=== PATIENT | male | born 1955 | race African-American/Black ===

== ENCOUNTER → 2020-12-09 | Outpatient (CLI) | payer MEDICAID, MEDICARE ==
--- NOTE | 2020-12-09 12:38 | KCIC ---
EXAMINATION: Magnetic resonance imaging (MRI) of the lumbar spine without contrast 12/09/2020 9:30 AM HISTORY: Low back pain. Multiple back injuries. Alternating bilateral lower extremity pain. TECHNIQUE: Multiplanar multi-weighted MRI of the lumbar spine was performed without intravenous contr ast using the standard lumbar spine protocol. Contrast information: None administered. COMPARISON: None available. FINDINGS: 2 mm retrolisthesis of L1 on L2. There is 3 mm anterolisthesis of L4 on L5. Vertebral body heights ar e maintained. Marrow signal intensity is normal in all sequences. 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 Conus medullaris terminates at T12-L1. Distal spinal cord signal intensity is normal in all sequences. Abdominal aorta is normal in caliber. No suspicious ret roperitoneal abnormality. Sclerotic density involving the left iliac bone measures 1.4 cm and presume d benign given absence of underlying malignancy. T11-T12: Mild disc bulge asymmetric to the left. Mild facet arthropathy. Mild left neuroforaminal collins nosis. Mild spinal canal stenosis without deformity of the conus medullaris. T12-L1: Disc is normal in configuration. Mild facet arthropathy. No neuroforaminal or spinal canal st enosis. L1-L2: There is circumferential disc bulge. There is moderate facet arthropathy. There is moderate ne uroforaminal stenosis. There is mild spinal canal stenosis. There is narrowing of the right subarticu lar zone. L2-L3: Mild circumferential disc bulge. There is moderate facet arthropathy with ligamentum flavum in folding. There is moderate left and mild to moderate right neuroforaminal stenosis. There is moderate spinal canal stenosis. L3-L4: There is a circumferential disc bulge. There is severe facet arthropathy. There is moderate ne uroforaminal stenosis. There is moderate spinal canal stenosis. L4-L5: There is a disc bulge asymmetric to the right with right far lateral disc protrusion. There is severe facet arthropathy ligamentum flavum infolding. There is moderate to severe bilateral neurofor aminal stenosis. There is severe spinal canal stenosis. L5-S1: Disc bulge with central disc protrusion. There is moderate facet arthropathy. There is mild ne uroforaminal stenosis. There is no spinal canal stenosis. IMPRESSION: Moderate degenerative changes of the lumbar spine as described in detail above. Electronically signed by: Julia Gutierrez MD (12/09/2020 12:36 PM) [facility]
--- NOTE | 2020-12-09 13:01 | KCIC ---
STUDY: MRI of the right shoulder without contrast INDICATION: Right shoulder pain and limited range of motion. COMPARISON: None. TECHNIQUE: Multiplanar MR imaging of the right shoulder performed without the use of intravenous or i ntra-articular contrast. FINDINGS: AC joint: Moderate AC joint arthrosis in the inferior joint capsule is indistinct which may be degene rative or related to previous trauma. Mild subacromial subdeltoid bursitis. Rotator cuff: Ill-defined T2 signal elevation mainly at the footprint of the mid to posterior suprasp inatus and anterior infraspinatus. The appearance is favored related to tendinosis with some superimp osed low-grade interstitial and articular sided tearing/fraying but there is no well delineated high- grade or full-thickness tear defect. The teres minor and subscapularis are intact. Muscular bulk is m aintained. Labrum: Labral degeneration/degenerative tearing best seen along portions of the posterior labrum. No displaced labral tissue or paralabral cyst. Long head biceps tendon: Remains intact and normally located. Cartilage: Scattered chondral thinning without a well delineated full-thickness defect. Bones: Mild degenerative edema along a portion of the greater tuberosity. Miscellaneous: Normal volume shoulder joint fluid. Intact inferior glenohumeral ligament complex. Unr emarkable axillary soft tissues. Impression: 1. Heterogeneous T2 signal elevation mainly involving the mid to posterior supraspinatus and anterio r infraspinatus at the footprint favored a combination of tendinosis and low-grade articular sided an d interstitial tearing. Cross-section involvement estimated at less than 25%. No well delineated high -grade or full-thickness rotator cuff tear. Muscular bulk is maintained. 2. Labral degeneration/degenerative tearing at several locations best seen posteriorly. No displaced labral fragment or paralabral cyst. The long head biceps is intact. 3. Moderate AC joint arthrosis. Indistinct inferior joint capsule could be degenerative or related t o previous trauma. 4. Very mild subacromial subdeltoid bursitis. Electronically signed by: RIMMA JACKMAN MD (12/09/2020 12:59 PM) [id number]
--- NOTE | 2020-12-09 13:21 | KCIC ---
STUDY: MRI of the right knee without contrast INDICATION: Right knee pain. COMPARISON: None. TECHNIQUE: Multiplanar MR imaging of the right knee performed without the use of intravenous or intra -articular contrast. FINDINGS: Menisci: Complex tearing with the degree of maceration involving the medial meniscus throughout the b rosa segment and posterior horn extension of torn meniscus downward into the meniscotibial recess such as seen on image 12 series 8. The lateral meniscus is intact. Cruciate ligaments: Intact. Collateral ligaments: Intact. Tendons: Intact. Cartilage: Patellofemoral: Multiple areas of partial thickness patellar chondrosis such is fissuring at the medi an ridge on image 11 series 3. Mostly partial-thickness chondrosis along the trochlear groove and med ial trochlea with a small area of higher grade chondral loss at the mid medial trochlea on image 15 s eries 6. Lateral compartment: Partial thickness chondrosis best seen at the posterior half of the lateral to t he plateau along its inner margin. High-grade chondral defect of the proximal nonweightbearing latera l femoral condyle measuring approximately 10 mm AP by 4 mm transverse, images 20 series 6 and 9 serie s 8. Localized chondrosis at the far posterior nonweightbearing lateral femoral condyle. Medial compartment: High-grade/full-thickness chondrosis along much of the weightbearing aspect of th e medial compartment, mainly peripherally. Partial thickness chondrosis of the posterior nonweightbea ring medial femoral condyle. Bones: Degenerative subchondral edema/cystic change greatest at the medial compartment. Scattered ost eophytes largest along the medial joint line. Normal TT-TG distance. Medial compartment joint space n arrowing. Miscellaneous: Small amount of knee joint fluid. Ganglion cyst formation dorsal to the popliteus tend on. Mildly edematous suprapatellar fat pad. Mild prepatellar edema without bursal fluid. IMPRESSION: 1. Complex tearing with a degree of maceration throughout the medial meniscal body and posterior hor n. Extension of torn meniscus downward into the meniscotibial recess. The lateral meniscus is intact as are the cruciate and collateral ligaments. 2. Tricompartmental chondrosis most pronounced at the medial femorotibial compartment with prominent areas of high-grade and full-thickness loss along the weightbearing aspect. Electronically signed by: RIMMA JACKMAN MD (12/09/2020 1:19 PM) [id number]
== END ==
LOC: KCIC MRI 09:24
PROVIDERS: ATTEND Family Medicine
DX: S83.231A Complex tear of medial meniscus, current injury, right knee, initial encounter (principal); S43.431A Superior glenoid labrum lesion of right shoulder, initial encounter; M67.461 Ganglion, right knee; M79.4 Hypertrophy of (infrapatellar) fat pad; M19.011 Primary osteoarthritis, right shoulder; M47.25 Other spondylosis with radiculopathy, thoracolumbar region; M51.17 Intervertebral disc disorders with radiculopathy, lumbosacral region; M43.16 Spondylolisthesis, lumbar region; M48.05 Spinal stenosis, thoracolumbar region; M75.51 Bursitis of right shoulder; R60.9 Edema, unspecified; X58.XXXA Exposure to other specified factors, initial encounter; Y93.89 Activity, other specified; Y92.89 Other specified places as the place of occurrence of the external cause; Y99.8 Other external cause status
CPT/HCPCS: 72148; 73221; 73721

== ENCOUNTER → 2021-01-01 | Outpatient (CLI) | payer MEDICARE ==
--- NOTE | 2021-01-03 09:05 | KCIC ---
Five view lumbar spine radiographs to include flexion and extension views 01/01/2021 CLINICAL HISTORY: Low back pain. AP, two neutral lateral, bilateral oblique and flexion and extension lateral digital radiographs of t he lumbar spine were obtained. Comparison is made to a MRI of the lumbar spine dated 12/09/2020. Minimal S-shaped curvature of the thoracolumbar spine is seen. Hypoplastic ribs are seen at T12. Mild anterolisthesis of L4 in relation L5 is seen. Degenerative changes are seen involving lower thoracic and throughout the lumbar disc spaces consisting of varying degrees of endplate sclerosis, disc spac e narrowing and minimal to mild anterior and posterior vertebral body osteophyte formation. Degenerat jaspal changes are seen involving the facet joints throughout the lumbar spine. No fracture or subluxati on lumbar vertebrae seen. The alignment of the lumbar vertebrae is maintained in flexion and extensio n. Calculations are seen throughout the pelvis consistent with phleboliths. IMPRESSION: Degenerative changes are seen involving the lumbar spine as discussed above. No acute oss eous abnormality is seen. Electronically signed by: Judd Urrutia MD (01/03/2021 9:03 AM) [id number]
== END ==
LOC: KCIC 13:07
PROVIDERS: ATTEND Neurological Surgery
DX: M47.816 Spondylosis without myelopathy or radiculopathy, lumbar region (principal); M48.061 Spinal stenosis, lumbar region without neurogenic claudication; M43.16 Spondylolisthesis, lumbar region; M43.8X5 Other specified deforming dorsopathies, thoracolumbar region; M25.78 Osteophyte, vertebrae
CPT/HCPCS: 72114

== ENCOUNTER → 2021-01-26 | Outpatient (CLI) | payer MEDICAID, MEDICARE ==
[~2021-01-26] MED LIST: GOLDEN SEAL PO; LATA2.5D2 OU; NAPR220C4 PO; OMEG-152 PO; TRAM50TA PO; [UNRECOGNIZED DRUG - OTHER] PO; vitamin c; vitamin e PO
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
== END ==
LOC: PNCL 09:16
PROVIDERS: ATTEND Anesthesiology
DX: M54.5 Low back pain (principal); K21.9 Gastro-esophageal reflux disease without esophagitis; M19.90 Unspecified osteoarthritis, unspecified site; Z87.01 Personal history of pneumonia (recurrent); Z87.891 Personal history of nicotine dependence; Z79.899 Other long term (current) drug therapy; Z98.890 Other specified postprocedural states
CPT/HCPCS: 99214; G0463

== ENCOUNTER → 2021-03-15 | Outpatient (CLI) | payer MEDICARE ==
--- NOTE | 2021-03-15 11:28 | PDOC ---
Progress Note - Pain Clinic Date of Service: DOS: DATE: 03/15/21 TIME: 11:24 Diagnosis: Dx: Lumbar lumbosacral spondylosis Lumbar degenerative disc disease with lumbar spinal stenosis History or Present Illness: HPI: 65-year-old male presents with pain low back and right greater than left lumbar spine and gluteus for years worse over the past year or so patient reports the pain is across the low back described as aching and radiating can be constant on and off in intensity worse with bending extension and flexion and right left lateral rotation again worse on the right side patient reports is an 8 on scale 10 is worse over the past week 3 on average 3 days least is a 3 today. Patient scribes it is aching dull shooting and tight across the low back but not radiating to the lower extremities patient reports is worse with walking standing changing position especially getting up from seated position or standing for more than 15 to 20 minutes patient reports it wakes him from sleep about every 4-6 hours but she lays on his right side. Patient reports no loss of motor function but significant fatigability with standing, and walking. Patient reports no bowel or bladder incontinence. Physical Exam: VS: Blood pressure is 137 pulse 70 respirations 18 temperature is 98.2 F weight is 239 pounds PE: PHYSICAL EXAMINATION: GENERAL: The patient is awake, alert, oriented, appropriate, very pleasant in demeanor HEENT: Shows normocephalic, atraumatic. Extraocular movements are intact and symmetrical. Oral cavity: Mucous membranes moist and pink. Dentition is intact. NECK: Shows anterior throat supple without palpable lymphadenopathy noted. Swallow reflex symmetrical. CHEST: Shows normal on inspection. Breath sounds are clear bilaterally, no rales rhonchi or wheezes auscultated. HEART: Shows S1, S2 clear. No murmurs auscultated. ABDOMEN: Soft, nontender, nondistended, obese. No palpable organomegaly is noted. No rebound or guarding demonstrated. BACK: Shows spine grossly in the midline. Normal-appearing cervical lordotic curvature. There is slightly increased thoracic kyphosis, some minor flattening of the lumbar lordotic curvature. Lumbar paraspinous muscles show symmetrical on inspection, on palpation shows some moderate tenderness diffusely throughout the upper, middle and lower distribution of the paraspinous muscles without specific trigger points, without radiation of pain. The patient has good rotational motion of the lumbar spine, both laterally as well as extension and flexion with significant tenderness with right greater than left rotation past 10 degrees of the lumbar spine as well as extension and axial loading to the low back with very significant pain again right greater than left better with forward flexion 45 degrees. No tenderness over the spinous processes, sacrum or sacroiliac regions. EXTREMITIES: Lower extremities show deep tendon reflexes 2+ in the patellar and tendo calcaneus tendons. Motor exam is 5 on a scale of 5 with right dorsiflexion, extension, quadriceps and hamstring flexion and 5/5 on the left. Peripheral pulses are 1 posterior tibial. No peripheral edema is noted bila terally. Lower extremities are warm and dry to touch, equal in color and appearance. SKIN: Shows warm and dry, good turgor. No edema. No sores, rashes or bruising throughout. Procedure: Procedure: Options discussed with patient. Patient chart reviewed his current medication regimen updated current review of systems updated today as well. We will preauthorize patient for bilateral L4-5 and L5-S1 facet medial branch blocks with fluoroscopic guidance. Patient is significant facet agenic pain again worse on the right than the left with extension of the lumbar spine most exacerbating as well as right and left lateral rotation. Once approved, patient will return for bilateral L4-5 and L5-S1 facet medial branch blocks. Medication Injected: Med Injected: None Condition at Discharge: Condition at Discharge: Condition at discharge is stable. DI RUEDA MD Mar 15, 2021 11:28
== END | disposition home or self-care (01) ==
LOC: PNCL 10:11
PROVIDERS: ATTEND Anesthesiology
DX: M51.36 Other intervertebral disc degeneration, lumbar region (principal); M48.061 Spinal stenosis, lumbar region without neurogenic claudication; M47.817 Spondylosis without myelopathy or radiculopathy, lumbosacral region; Z79.899 Other long term (current) drug therapy; Z88.2 Allergy status to sulfonamides
CPT/HCPCS: 99212; G0463

== ENCOUNTER → 2021-03-29 | Outpatient (CLI) | payer MEDICARE ==
[~2021-03-29] MED LIST changes: +BUPIVACAINE MPF 0.25% 10 ML VIAL. ONE; +IOHEXOL 180 MG/ML 10 ML VIAL. ONE; +methylPREDNISolone ACETATE 40 MG/ML VIAL. ONE; +methylPREDNISolone ACETATE 80 MG/ML VIAL. ONE
--- NOTE | 2021-03-29 10:47 | PDOC ---
Progress Note - Pain Clinic Date of Service: DOS: DATE: 03/29/21 TIME: 10:44 Diagnosis: Dx: Lumbar and lumbosacral spondylosis Lumbar degenerative disc disease Lumbar spinal stenosis History or Present Illness: HPI: 65-year-old male returns with complaints of low back pain bilaterally right slightly worse than the left but present bilaterally not radiating to the lower extremities at this time but is across the low back bilaterally worse with walking standing changing positions getting up from a seated position and as wel l is been awakening from sleep at night patient reports it slightly worse on the right than the left with extension at the lumbar spine as well as walking. Patient reports is an 8 on scale 10 is worse over the past week 5 on average 3 its least is a 5 today. Patient which is tight and constant on and off in intensity but always present. Patient reports no loss of motor function no bowel or bladder incontinence. Patient has been using his inversion table about 3 times a day which does help decrease the pain by about 30%. Patient reports no motor or sensory deficits no bowel or bladder incontinence. Physical Exam: VS: Blood pressure is 132/75 pulse 72 respirations 18 temperature 98.3 F height is 6 foot 2 inches weight is 237 pounds PE: PHYSICAL EXAMINATION: GENERAL: The patient is awake, alert, oriented, appropriate, very pleasant in demeanor HEENT: Shows normocephalic, atraumatic. Extraocular movements are intact and symmetrical. Oral cavity: Mucous membranes moist and pink. Dentition is intact. NECK: Shows anterior throat supple without palpable lymphadenopathy noted. Swallow reflex symmetrical. CHEST: Shows normal on inspection. Breath sounds are clear bilaterally, no rales or rhonchi. HEART: Shows S1, S2 clear. No murmurs auscultated. ABDOMEN: Soft, nontender, nondistended, obese. No palpable organomegaly is noted. BACK: Shows spine grossly in the midline. Normal-appearing cervical lordotic curvature. There is slightly increased thoracic kyphosis, some minor flattening of the lumbar lordotic curvature. Lumbar paraspinous muscles show symmetrical on inspection, on palpation shows some moderate tenderness diffusely throughout the upper, middle and lower distribution of the paraspinous muscles without specific trigger points, without radiation of pain. The patient has good rotational motion of the lumbar spine, both laterally as well as extension and flexion with moderate tenderness with extension and axial loading lumbar spine forward flexion at 45 degrees with 1 without significant difficulty as is right and left lateral rotation but moderate tenderness greater than 10 degrees right and left and equal. EXTREMITIES: Lower extremities show deep tendon reflexes 2+ in the patellar and tendo calcaneus tendons. Motor exam is 5 on a scale of 5 with right dorsiflexion, extension, quadriceps and hamstring flexion and 5/5 on the left. Peripheral pulses are 1+ posterior tibial. No peripheral edema is noted bilaterally. Lower extremities are warm and dry to touch, equal in color and appearance. SKIN: Shows warm and dry, good turgor. No edema. No sores, rashes or bruising throughout. Procedure: Procedure: Options were discussed with the patient. Patient's old chart was viewed as his current medication regimen updated current view of systems updated today as well. We will proceed with bilateral L4-5 and L5-S1 facet medial branch blocks today with fluoroscopic guidance. Risks were discussed including but not limited to: Bleeding, infection, possibility of epidural hematoma and subsequent neurological compromise, dural puncture, headaches, spinal cord and/or nerve damage, side effects of steroid medication, and poor results regarding pain control. Patient understands and wished to proceed. Patient will return to the clinic in approximate 2 weeks for follow-up, was counseled return appointment, activity level, and side effect to be aware of. Medication Injected: Med Injected: Under sterile prep and drape using C-arm fluoroscopic guidance AP and lateral and oblique views, bilateral L4-5 and L5-S1 facet joint MB's injections were performed, using quinke needles with stylette's x4,, medications injected: 120 mg Depo-Medrol +4 cc 0.25% bupivacaine +2 cc contrast. Condition at discharge stable patient tolerated the procedure well and no complications. Condition at Discharge: Condition at Discharge: Condition at discharge stable, patient tolerated procedure well and had no complications. DI RUEDA MD Mar 29, 2021 10:47
--- NOTE | 2021-03-29 10:48 | PDOC4 ---
Procedure Note: ICD 10 Code: ICD 10 Code: M4 7.816 M4 7.817 Procedure Note: Patient was consented for bilateral L4-5 and L5-S1 facet medial branch blocks with fluoroscopic guidance. Risks were discussed including but not limited to: Bleeding, infection, possibility of epidural hematoma and subsequent neurological compromise, dural puncture, headaches, spinal cord and/or nerve damage, side effects of steroid medication, and poor results regarding pain control. Patient understands and wished to proceed. Under sterile prep and drape using C-arm fluoroscopic guidance AP and lateral and oblique views, bilateral L4-5 and L5-S1 facet joint MB's injections were performed, using quinke needles with stylette's x4,, medications injected: 120 mg Depo-Medrol +4 cc 0.25% bupivacaine +2 cc contrast. Condition at discharge stable patient tolerated the procedure well and no complications. DI RUEDA MD Mar 29, 2021 10:48
== END | disposition home or self-care (01) ==
LOC: PNCL 10:10
PROVIDERS: ATTEND Anesthesiology
DX: M51.36 Other intervertebral disc degeneration, lumbar region (principal); M48.061 Spinal stenosis, lumbar region without neurogenic claudication; M47.817 Spondylosis without myelopathy or radiculopathy, lumbosacral region; Z79.899 Other long term (current) drug therapy; Z88.2 Allergy status to sulfonamides
CPT/HCPCS: 64493; 64494; J1030; J1040; J3490; Q9965

== ENCOUNTER → 2021-04-12 | Outpatient (CLI) | payer MEDICARE ==
--- NOTE | 2021-04-12 11:49 | PDOC ---
Progress Note - Pain Clinic Date of Service: DOS: DATE: 04/12/21 TIME: 11:46 Diagnosis: Dx: Lumbar and lumbosacral spondylosis Lumbar degenerative disc disease with lumbar spinal stenosis History or Present Illness: HPI: 66-year-old male returns for follow-up status post bilateral L4-5 and L5-S1 facet medial branch blocks with about 50% improvement lasting currently patient last seen March 29 and is doing very well with the pain is still in the back worse with rotation standing changing positions and to have prolonged walking or sitting patient reports that the sharp pain is tight in the back does not radiate to lower extremities on and off in intensity better with sitting or laying down but does wake him sleep at every 4-5 hours patient reports pain a 7 on scale 10 is worse over the past week 3 on average 1 its least and is a 3 today. Patient reports some cyst "stiffness" in the low back and has been using his inversion table which does seem to help decrease the pain fairly significantly as well. Patient reports spasms are a new finding in the back and the sides near the ribs and around the low flank area but are intermittent. Patient reports no new bowel or bladder incontinence no motor loss. Physical Exam: VS: Blood pressure is 135/90 pulse 72 respirations 16 temperature is 97 point Fahrenheit weight is 242 pounds. PE: PHYSICAL EXAMINATION: GENERAL: The patient is awake, alert, oriented, appropriate, very pleasant in demeanor HEENT: Shows normocephalic, atraumatic. Extraocular movements are intact and symmetrical. Oral cavity: Mucous membranes moist and pink. NECK: Shows anterior throat supple without palpable lymphadenopathy noted. Swallow reflex symmetrical. CHEST: Shows normal on inspection. Breath sounds are clear bilaterally, no rales rhonchi wheezes auscultated. HEART: Shows S1, S2 clear. No murmurs auscultated. ABDOMEN: Soft, nontender, nondistended, obese. No palpable organomegaly is noted. BACK: Shows spine grossly in the midline. Normal-appearing cervical lordotic curvature. There is slightly increased thoracic kyphosis, some minor flattening of the lumbar lordotic curvature. Lumbar paraspinous muscles show symmetrical on inspection, on palpation shows some moderate tenderness diffusely throughout the upper, middle and lower distribution of the paraspinous muscles without specific trigger points, without radiation of pain. The patient has good rotational motion of the lumbar spine, both laterally as well as extension and flexion with significant pain with extension and axial loading lumbar spine also right and left lateral rotation moderately tender greater than 10 degrees forward flexion is performed at 45 degrees without significant pain. EXTREMITIES: Lower extremities show deep tendon reflexes 2+ in the patellar and tendo calcaneus tendons. Motor exam is 5 on a scale of 5 with right dorsiflexion, extension, quadriceps and hamstring flexion and 5/5 on the left. Peripheral pulses are 1+ posterior tibial. No peripheral edema is noted bilaterally. Lower extremities are warm and dry to touch, equal in color and appearance. SKIN: Shows warm and dry, good turgor. No edema. No sores, rashes or bruising throughout. Procedure: Procedure: Options were discussed with the patient. Patient's old chart was reviewed as his current medication regimen updated current review of systems updated today as well. We will proceed with bilateral L4-5 and L5-S1 facet medial branch blocks today with fluoroscopic guidance. Risks were discussed including but not limited to: Bleeding, infection, possibility of epidural hematoma and subsequent neurological compromise, dural puncture, headaches, spinal cord and/or nerve damage, side effects of steroid medication, and poor results regarding pain control. Patient understands and wished to proceed. Patient return to the clinic in approximately 2 weeks for follow-up, was counseled as return appointment, typical, and side effect to be aware of. Medication Injected: Med Injected: Under sterile prep and drape using C-arm fluoroscopic guidance AP and lateral and oblique views, bilateral L4-5 and L5-S1 facet joint MB's injections were performed, using quinke needles with stylette's x4,, medications injected: 120 m g Depo-Medrol +4 cc 0.25% bupivacaine +2 cc contrast. Condition at discharge stable patient tolerated the procedure well and no complications. Condition at Discharge: Condition at Discharge: Condition at discharge stable, paced tolerated procedure well and had no complications. DI RUEDA MD Apr 12, 2021 11:49
--- NOTE | 2021-04-12 11:50 | PDOC4 ---
Procedure Note: ICD 10 Code: ICD 10 Code: M 4 7.816 M 47.817 M 48.06 Procedure Note: Patient was consented for bilateral L4-5 and L5-S1 facet medial branch blocks with fluoroscopic guidance. Risks were discussed including but not limited to: Bleeding, infection, possibility of epidural hematoma and subsequent neurol ogical compromise, dural puncture, headaches, spinal cord and/or nerve damage, side effects of steroid medication, and poor results regarding pain control. Patient understands and wished to proceed. Under sterile prep and drape using C-arm fluoroscopic guidance AP and lateral and oblique views, bilateral L4-5 and L5-S1 facet joint MB's injections were performed, using quinke needles with stylette's x4,, medications injected: 120 mg Depo-Medrol +4 cc 0.25% bupivacaine +2 cc contrast. Condition at discharge stable patient tolerated the procedure well and no complications. DI RUEDA MD Apr 12, 2021 11:50
== END | disposition home or self-care (01) ==
LOC: PNCL 10:18
PROVIDERS: ATTEND Anesthesiology
DX: M47.817 Spondylosis without myelopathy or radiculopathy, lumbosacral region (principal); M51.36 Other intervertebral disc degeneration, lumbar region; M48.061 Spinal stenosis, lumbar region without neurogenic claudication; Z79.899 Other long term (current) drug therapy; Z88.2 Allergy status to sulfonamides
CPT/HCPCS: 64493; 64494; J1030; J1040; J3490; Q9965